=== PATIENT | male | born 1985 | race Two or more races ===

== ENCOUNTER 2022-12-16 15:08 | Emergency (ER) | payer OTHER ==
[~2022-12-16] VITALS: Ht 180.3 cm; Wt 108.0 kg
[2022-12-16] MEDS ORDERED: LIDOCAINE 1% 10 ML VIAL SQ ONE (16:30)
[2022-12-16] MEDS ORDERED: OXYMETAZOLINE HCL 0.05% 15 ML NASAL SPRAY NASAL ONE (16:30)
[2022-12-16] MEDS ORDERED: BACITRACIN 0.9 GM PACKET OINTMENT TP ONE (16:30)
[2022-12-16] MEDS ORDERED: HYDROCODONE/ACETAMINOPHEN 5-325 MG TABLET PO ONE (16:30)
[2022-12-16] MEDS ORDERED: CEPHALEXIN MONOHYDRATE 500 MG CAPSULE PO ONE (18:15)
[2022-12-16 19:23] VITALS: BP 142/90
== END 2022-12-16 19:56 | disposition home or self-care (01) ==
LOC: EMS 15:18
DX: S02.2XXB Fracture of nasal bones, initial encounter for open fracture (principal); S00.33XA Contusion of nose, initial encounter; S02.5XXA Fracture of tooth (traumatic), initial encounter for closed fracture; Y04.8XXA Assault by other bodily force, initial encounter; Y93.89 Activity, other specified; Y92.89 Other specified places as the place of occurrence of the external cause; Y99.8 Other external cause status
CPT/HCPCS: 99284; 70450; 70486; 72125; 12013; J3490